=== PATIENT | female | born 1990 | race Caucasian/White ===

== ENCOUNTER 2021-11-13 09:21 | Emergency (ER) | payer OTHER ==
[2021-11-13 10:05] VITALS: TEMP 98.9; BMI 32.3
[2021-11-13] MEDS ORDERED: CASIRIVIMAB/IMDEVIMAB 10 ML in SODIUM CHLORIDE 100 ML IVPB ONE (10:11)
[2021-11-13 12:52] VITALS: BP 120/78; PULSE 89
== END 2021-11-13 16:41 | disposition home or self-care (01) ==
LOC: JCOVINFU 09:21
PROC: 3E033GC Introduction of Other Therapeutic Substance into Peripheral Vein, Percutaneous Approach (ICD-10-PCS; principal; 2021-11-13)
DX: U07.1 COVID-19 (principal)
CPT/HCPCS: 99284-25; Q0240